=== PATIENT | female | born 1945 | race Caucasian/White ===

== ENCOUNTER → 2016-10-16 | Outpatient (CLI) | payer OTHER ==
--- NOTE | 2016-10-16 12:17 | NM ---
Nuclear Medicine Parathyroid injection Clinical Indications: Hyperparathyroidism. Comparison Studies: None available. Technique: The patient received 10.07 mCi of technetium-99m sestamibi intravenously. No imaging as pe r physician request. 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
== END ==
LOC: EDSEX → FIMAGING 10:27
PROVIDERS: ATTEND Surgery
DX: E21.3 Hyperparathyroidism, unspecified (principal); E21.0 Primary hyperparathyroidism
CPT/HCPCS: 78808; A9500